=== PATIENT | female | born 1970 | race Caucasian/White ===

== ENCOUNTER → 2017-04-03 | Outpatient (CLI) | payer OTHER ==
[~2017-04-03] MED LIST: MINOCYCLIN100 MG/CAP PO; PRINZIDE 12.5 M1 TA1 PO; ZYRTEC 10MG10 MG PO
== END ==
LOC: MC.RAD 11:17
DX: Z12.31 Encounter for screening mammogram for malignant neoplasm of breast (principal)

== ENCOUNTER → 2019-09-09 | Outpatient (CLI) | payer OTHER | LOC: MC.RAD 09-05 08:00 | DX: Z12.31 Encounter for screening mammogram for malignant neoplasm of breast (principal) ==

== ENCOUNTER → 2021-04-27 | Outpatient (CLI) | payer OTHER | LOC: MC.RAD 08:45 | DX: Z12.31 Encounter for screening mammogram for malignant neoplasm of breast (principal) ==

== ENCOUNTER → 2022-04-26 | Outpatient (CLI) | payer OTHER | LOC: MC.RAD 10:16 | DX: Z12.31 Encounter for screening mammogram for malignant neoplasm of breast (principal) ==

== ENCOUNTER → 2024-04-30 | Outpatient (CLI) | payer OTHER | LOC: MC.RAD 07:59 | DX: Z12.31 Encounter for screening mammogram for malignant neoplasm of breast (principal) ==